=== PATIENT | male | born 2000 | race Caucasian/White ===

== ENCOUNTER 2022-08-14 13:21 | Emergency (ER) | payer OTHER, SELFPAY ==
[2022-08-14 13:33] VITALS: BP 131/72; PULSE 96; RESP 16; TEMP 36.6; O2SAT 98
--- NOTE | 2022-08-14 13:48 | ECG_ITS ---
Measurements Intervals [place] Rate: 66 P: 57 [place]: 147 QRS: 81 QRSD: 110 T: 47 QT: 340 QTc: 357 Interpretive Statements SINUS RHYTHM [place] DEPRESSION IS NOTED IN THE INFERIOR LEADS WHICH CAN BE SEEN WITH PERICARDITIS NO PREVIOUS ECG AVAILABLE FOR COMPARISON Electronically Signed On 08-14-2022 19:56:32 CDT by Trinh Ocampo M.D.
--- NOTE | 2022-08-14 14:00 | ED.URI ---
HPI - URI/Sore Throat General Chief Complaint: Upper Respiratory Infection Stated Complaint: Chest Pain Time Seen by Provider: 08/14/22 13:49 Source: patient and RN notes reviewed Mode of arrival: ambulatory Limitations: no limitations History of Present Illness HPI Narrative: Patient presents today complaining of intermittent sharp left-sided chest pain since 08/23 last night with intermittent shortness of breath. Chest pain worsens when he takes a deep breath, coughs, sneezes, or laughs. Denies any recent illness, but states he does have a chronic cough that has been present for the last 1-2 years. Patient currently rates his pain 03/05 and has tried no ushe-ury-[id number] treatment prior to arrival. Smokes marijuana daily. Smokes 1 pack of cigarettes every 2-3 days. Patient denies any additional symptoms to include fever, dizziness, lightheadedness, numbness or tingling in the extremities, not show vomiting, vision changes, abdominal pain, sweats or chills. Denies any cardiac or pulmonary history. Related Data Allergies Allergy/AdvReac Type Severity Reaction Status Date / Time fentanyl AdvReac Mild Rash Verified 08/14/22 13:26 morphine AdvReac Mild Rash Verified 08/14/22 13:26 Review of Systems Review of Systems: CONSTITUTIONAL: Denies body aches, fever, chills, or sweats. EYES: Denies visual changes, redness, or discharge. ENT: Denies rhinorrhea, congestion, sore throat, or otalgia. CARDIOVASCULAR: Denies palpitations, or edema.+ chest pain RESPIRATORY: + chronic cough, shortness of breath GASTROINTESTINAL: Denies abdominal pain, nausea, vomiting, or diarrhea. GENITOURINARY: Denies dysuria or hematuria. SKIN: Denies rash, itching, or wounds. MUSCULOSKELETAL: Denies back pain, joint pain, or myalgia. NEUROLOGIC: Denies headache, numbness, tingling, or weakness. PSYCH: Denies depression or anxiety. [facility] Social History Social History (Updated 08/14/22 @ 14:13 by Elva Hi, [facility], ) Smoking status: Current every day smoker Tobacco type: cigarettes Substance use: current Substance use type: marijuana Comments At time of signature, I have reviewed and agree with nursing past medical, surgical, social and family history unless otherwise noted. Please see nursing chart for further information. There is no relevant family history pertinent to the presenting complaint Exam Narrative: GENERAL: Well-appearing, well-nourished, and in no acute distress. HEAD: Normocephalic, atraumatic. EYES: EOMI. No redness or drainage. Conjunctivae normal. ENT: Mucous membranes pink and moist. Nares clear. No rhinorrhea. TMs normal bilaterally. Throat normal. Uvula midline. NECK: Normal AROM. Supple. No lymphadenopathy. CHEST: No respiratory distress. Clear to auscultation. Patient is not labored. He is speaking in complete sentences without any difficulty. Patient has significant tenderness of the left chest with palpation, most notably in an area the size of a palm around his nipple. No crepitus, erythema, ecchymosis. Pain in the chest does not increase with movement of the shoulder. HEART: Regular rate and rhythm. No murmur appreciated. Normal peripheral pulses. EXTREMITIES: Normal range of motion. No edema. SKIN: Warm, dry, no rash. Capillary refill normal. Normal skin turgor. NEURO: No focal deficits. Alert and oriented x3. Gait steady. PSYCH: Normal affect. No signs of depression or anxiety. Course Course Level of Care: Express Care Visit Vital Signs Vital signs: Vital Signs Temperature 97.8 F 08/14/22 13:33 Pulse Rate 96 08/14/22 13:33 Respiratory Rate 16 08/14/22 13:33 Blood Pressure 131/72 08/14/22 13:33 Pulse Oximetry 98 08/14/22 13:33 Oxygen Delivery Room Air 08/14/22 13:33 Temperature 97.8 F 08/14/22 13:33 Pulse Rate 96 08/14/22 13:33 Respiratory Rate 16 08/14/22 13:33 Blood Pressure 131/72 08/14/22 13:33 Pulse Oximetry 98 08/14/22 13:33 Oxygen
== END 2022-08-14 14:04 | disposition home or self-care (01) ==
PROVIDERS: Emergency Provider Nurse Practitioner
DX: R07.89 Other chest pain (principal); F17.210 Nicotine dependence, cigarettes, uncomplicated; F12.90 Cannabis use, unspecified, uncomplicated
CPT/HCPCS: 93005; 99213; G0463

== ENCOUNTER 2022-12-26 15:45 | Emergency (ER) | payer OTHER, SELFPAY ==
[2022-12-26 16:08] VITALS: BP 132/74; PULSE 70; RESP 18; TEMP 36.6; O2SAT 100
--- NOTE | 2022-12-26 16:35 | ED.URI ---
HPI - URI/Sore Throat General Chief Complaint: Upper Respiratory Infection Stated Complaint: sob Time Seen by Provider: 12/26/22 16:22 Source: patient, RN notes reviewed and old records reviewed Mode of arrival: ambulatory Limitations: no limitations History of Present Illness HPI Narrative: 22 year old male presents to [facility] care with complaints of cough for 2 years and having some shortness of breath for 2 months,and one week duration of sore throat. Patient reports that he was diagnosed with asthma at age 8, has not seen doctor since age 15. Patient does use tobacco daily. Patient reports headache,body aches, productive cough of greenish phlegm. Patient reports that cough is worse in the morning and if he gets to laughing. Patient is in no acute respiratory difficulty respirations nonlabored, no tachypnea noted SAO2 100% on room air. MD elicited complaint: cough, sore throat and other (SOB) Pertinent past history: asthma Onset (ago): week(s) (1 week sore throat, 2 months shortness of breath, 2 yrs cough) Consistency: constant Pain scale (0-10): 2 Description of mucous: yellow and green Able to tolerate fluids by mouth: Yes Exacerbating factors: exertion Treatments prior to arrival: none Related Data Allergies Allergy/AdvReac Type Severity Reaction Status Date / Time fentanyl AdvReac Mild Rash Verified 12/26/22 16:14 morphine AdvReac Mild Rash Verified 12/26/22 16:14 Review of Systems Review of Systems: CONSTITUTIONAL: Denies malaise, chills, sweats, or fever. EYES: Denies visual changes, redness, or discharge. ENT: Reports rhinorrhea, congestion, no sinus pain,no otalgia and positive for sore throat. CARDIOVASCULAR: Denies chest pain, palpitations, or edema. RESPIRATORY: Reports cough.? Reports some dyspnea. GASTROINTESTINAL: Denies abdominal pain, nausea, vomiting, diarrhea SKIN: Denies rash or itching. MUSCULOSKELETAL: Reports myalgia. NEUROLOGIC: Denies headache. All systems reviewed & are unremarkable except as noted in HPI and below PMFSH Past Medical History Medical History (Updated 12/27/22 @ 11:00 by Isabela Arroyo NP) Asthma Social History Social History (Updated 12/27/22 @ 10:55 by Isabela Arroyo NP) Smoking status: Current every day smoker Tobacco type: cigarettes Substance use: current Substance use type: marijuana Living arrangements: with family Gender identity (if verbalized by the patient): Male Comments At time of signature, agree with nursing past medical, surgical, social and family history. There is no relevant family history pertinent to the presenting complaint Exam Narrative: GENERAL: Well-appearing, well-nourished, and in no acute distress. HEAD: Normocephalic EYES: PERRLA, conjunctivae clear ENT: Nares clear, turbinates edematous and erythematous, clear discharge. Mucous membranes moist. TM pearly rich with dull light reflex bilaterally; no tragal tenderness. Oropharynx erythematous without lesions. Tonsils mildly enlarged and without exudate, no drooling, no hoarseness, no trismus, uvula midline.post nasal drainage NECK: Supple. No lymphadenopathy CHEST: Clear to auscultation, breath sounds equal. No wheezing, rhonchi, rales, or stridor. No respiratory distress, speaks in full sentences.cough productive, SAO2 100% on room air HEART: Regular rate and rhythm. No murmur heard. SKIN: Warm, dry, no rash. NEURO: Alert and oriented x3. PSYCH: Normal mood and affect Course Course Emergency Course: Patient is aware of diagnosis, understands and agrees to treatment plan.? Anticipatory guidance given.? Patient agrees to follow-up as directed and is aware of reasons to seek care at the emergency department. Portions of this record may have been created with voice recognition software Level of Care: Express Care Visit Vital Signs Vital signs: Vital Signs Temperature 36.6 C 12/26/22 16:08 Pulse Rate 70 12/26/22 16:08
== END 2022-12-26 16:55 | disposition home or self-care (01) ==
PROVIDERS: Emergency Provider Registered Nurse
DX: J06.9 Acute upper respiratory infection, unspecified (principal); J45.909 Unspecified asthma, uncomplicated; F17.210 Nicotine dependence, cigarettes, uncomplicated
CPT/HCPCS: 87081; 87880; 99213; G0463

== ENCOUNTER 2023-06-07 11:28 | Emergency (ER) | payer SELFPAY ==
[2023-06-07 11:44] VITALS: BP 136/70; PULSE 93; RESP 18; TEMP 36.8; O2SAT 98
--- NOTE | 2023-06-07 12:12 | ED.URI ---
HPI - URI/Sore Throat General Chief Complaint: Upper Respiratory Infection Stated Complaint: sorethroat Time Seen by Provider: 06/07/23 11:35 Source: patient Mode of arrival: ambulatory Limitations: no limitations History of Present Illness HPI Narrative: 22-year-old male presents to [facility] [place] [facility] with complaints of sore throat, body aches, nausea and vomiting for the past 3 days. Patient reports his daughter recently tested positive for strep throat. Patient has been taking [id number]-[id number] Tylenol and Motrin with minimal relief. Patient denies fever, cough, congestion, runny nose or ear pain. MD elicited complaint: sore throat and other (Nausea, vomiting, body aches) Onset (ago): day(s) (3) Able to tolerate fluids by mouth: Yes Exacerbating factors: swallowing Context: sick contacts Treatments prior to arrival: acetaminophen and ibuprofen Related Data Allergies Allergy/AdvReac Type Severity Reaction Status Date / Time fentanyl Allergy Mild Rash Verified 06/07/23 11:50 morphine Allergy Mild Rash Verified 06/07/23 11:50 Review of Systems Constitutional: Constitutional: Denies chills, Denies fatigue, Denies fever(s) and Denies weakness ENT: Denies vertigo, Denies dizziness, Denies epistaxis, Denies nasal congestion and Reports sore throat Cardiovascular: Cardiovascular: Denies chest pain Respiratory: Respiratory: Denies cough Gastrointestinal: Gastrointestinal: Denies diarrhea, Reports nausea and Reports vomiting Integumentary/Breasts: Skin/Breast: Denies rash Neurologic: Denies dizziness, Denies syncope and Denies headache(s) Allergic/Immunologic: Allergic/Immunologic: Denies throat swelling, Denies tongue swelling and Denies wheezing PMFSH Past Medical History Medical History Asthma Social History Social History Smoking status: Current every day smoker Tobacco type: cigarettes Substance use: current Substance use type: marijuana Living arrangements: with family Gender identity (if verbalized by the patient): Male Comments At time of signature, I agree with nursing past medical, surgical, social and family history. There is no relevant family history pertinent to the presenting complaint. Exam Const: General: healthy appearing and no acute distress Nutritional Appearance: well nourished Orientation/consciousness: patient oriented x3 Limitations: no limitations HENMT: Head: normal to inspection Ears: external ears normal, TM's normal bilaterally and EAC's normal Mouth: Yes Normal oral and palatal mucosa present and Yes moist mucous membranes Teeth and gingiva: dentition normal Throat: uvula midline Other: Mild erythema noted to oropharynx. 1+ swelling with moderate erythema noted to bilateral tonsils. No peritonsillar abscess noted Eyes: Conjunctivae: conjunctivae normal Neck: Neck: normal visual inspection Resp: Effort & Inspection: normal respiratory effort and not labored Auscultation: clear to auscultation bilaterally, no crackles, no rales and no rhonchi Cardio: Rate: regular rate Rhythm: regular rhythm Heart sounds: no murmurs Skin: General skin exam: normal color Rashes: no rashes Neuro: General: patient oriented x3 Speech: normal speech Psych: Affect: normal affect Attitude: cooperative Course Course Level of Care: Express Care Visit Vital Signs Vital signs: Vital Signs Temperature 36.8 C 06/07/23 11:44 Pulse Rate 93 06/07/23 11:44 Respiratory Rate 18 06/07/23 11:44 Blood Pressure 136/70 06/07/23 11:44 Pulse Oximetry 98 06/07/23 11:44 Oxygen Delivery Room Air 06/07/23 11:44 Temperature 36.8 C 06/07/23 11:44 Pulse Rate 93 06/07/23 11:44 Respiratory Rate 18 06/07/23 11:44 Blood Pressure 136/70 06/07/23 11:44 Pulse Oximetry 98 06/07/23 11:44 Oxygen Delivery Room Air 06/07/23 11:44 MDM - URI/Sor
== END 2023-06-07 12:20 | disposition home or self-care (01) ==
PROVIDERS: Emergency Provider Nurse Practitioner Family
DX: J02.0 Streptococcal pharyngitis (principal); F17.210 Nicotine dependence, cigarettes, uncomplicated; F12.90 Cannabis use, unspecified, uncomplicated; J45.909 Unspecified asthma, uncomplicated
CPT/HCPCS: 87880; 99213; G0463

== ENCOUNTER 2024-04-05 10:31 | Emergency (ER) | payer SELFPAY ==
[2024-04-05 10:52] VITALS: BP 124/65; PULSE 72; RESP 18; TEMP 36.3; O2SAT 99
--- OUTSIDE RECORDS SUMMARY | 2024-04-05 11:22 | XMS_ITS | Referral Summary ---
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 Gender Identity Not on file Sexual Orientation Not on file Last Filed Vital Signs Vital Sign Reading Time Taken Comments Blood Pressure 172/100 09/09/2020 1:17 PM CDT Pulse 108 09/09/2020 1:17 PM CDT Temperature 36.8 C (98.3 F) 09/09/2020 1:17 PM CDT Respiratory Rate 18 09/09/2020 1:17 PM CDT Oxygen Saturation 98% 09/09/2020 1:17 PM CDT Inhaled Oxygen Concentration - - Weight 74.6 kg (164 lb 6.4 oz) 09/09/2020 1:17 P M CDT Height 180.3 cm (5' 11 ) 09/09/2020 1:17 PM CDT Body Mass Index 22.93 09/09/2020 1:17 PM CDT Plan of Treatment Not on file Care Teams Packaging Inspector Relationship Specialty Start Date End Date No, Physician PCP - General 09/09/20
--- OUTSIDE RECORDS SUMMARY | 2024-04-05 11:22 | XMS_ITS | Clinical Summary ---
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
--- NOTE | 2024-04-05 11:30 | ED.EAR ---
HPI - Ear Problem General Chief complaint: Ear Stated complaint: ear pain Time Seen by Provider: 04/05/24 11:30 Source: patient Mode of arrival: ambulatory Limitations: no limitations History of Present Illness HPI Narrative: 23-year-old male presents with complaint of left ear pain, nasal congestion for 2-3 days. Afebrile. All systems reviewed and negative except as noted above. Related Data Allergies Allergy/AdvReac Type Severity Reaction Status Date / Time fentanyl Allergy Mild Rash Verified 04/05/24 11:22 morphine Allergy Mild Rash Verified 04/05/24 11:22 Review of Systems Review of Systems: CONSTITUTIONAL: Denies fever, chills, or sweats. reports fatigue. EYES: Denies visual changes, redness, or discharge. ENT: Reports rhinorrhea, congestion. Denies sore throat. Reports left ear pain. CARDIOVASCULAR: Denies chest pain, palpitations, or edema. RESPIRATORY: Denies cough or dyspnea. GASTROINTESTINAL: Denies abdominal pain, nausea, vomiting, or diarrhea. GENITOURINARY: Denies dysuria or hematuria. SKIN: Denies rash or itching. MUSCULOSKELETAL: Denies back pain, joint pain, or myalgia. NEUROLOGIC: Denies headache, numbness, or weakness. PSYCHIATRIC: Denies anxiety or depression. All other systems reviewed are negative, except as documented in HPI. [facility] Past Medical History Medical History Asthma Social History Social History Smoking status: Current every day smoker Tobacco type: cigarettes Substance use: current Substance use type: marijuana Living arrangements: with family Gender identity (if verbalized by the patient): Male Comments At time of signature, agree with nursing past medical, surgical, social and family history. There is no relevant family history pertinent to the presenting complaint. Exam Narrative: GENERAL: This is a well-nourished, well-developed patient, in no apparent distress. HEAD: normocephalic, atraumatic. EYES: PERRL. Sclera clear/white. Vision is grossly intact. EARS: External ears normal, auditory canals clear and without drainage, left TM is erythematous and bulging. Right TM is normal. No perforation bilaterally.. Hearing grossly intact. NOSE: External nose normal with Mild congestion, clear nasal drainage, erythema to bilateral nares THROAT: Mucous membranes moist, erythema postnasal drainage NECK: Neck supple, non-tender without lymphadenopathy, masses or thyromegaly. CARDIOVASCULAR: Regular rate and rhythm without murmurs, gallops, or rubs. RESPIRATORY: Clear to auscultation. Breath sounds equal bilaterally. No wheezes, rales, or rhonchi. SKIN: warm, Dry, intact with no suspicious lesions or rash, good texture and turgor. NEURO: awake, alert, and oriented to person, place and time. There were no obvious focal neurologic abnormalities. EXTREMITIES: No joint tenderness, effusion, or edema noted. Course Course Level of Care: Express Care Visit Vital Signs Vital signs: Vital Signs Temperature 36.3 C L 04/05/24 10:52 Pulse Rate 72 04/05/24 10:52 Respiratory Rate 18 04/05/24 10:52 Blood Pressure 124/65 04/05/24 10:52 Pulse Oximetry 99 04/05/24 10:52 Oxygen Delivery Room Air 04/05/24 10:52 Temperature 36.3 C L 04/05/24 10:52 Pulse Rate 72 04/05/24 10:52 Respiratory Rate 18 04/05/24 10:52 Blood Pressure 124/65 04/05/24 10:52 Pulse Oximetry 99 04/05/24 10:52 Oxygen Delivery Room Air 04/05/24 10:52 reviewed Medical Decision Making MDM Narrative Medical decision making narrative: Please be advised this is a medical document. It is intended for uhyw-ce-ilxk communication. It is written in medical language and may contain unfamiliar abbreviations or verbiage. Medical documents are intended to carry relevant information, facts as evident, and the clinical opinion of the practitioner at the time of the encounter. This report may have been done utilizing a voice recognition system. Attempts have been made to correct errors. However, there may be uncorrected grammatical, spelling, and recognition errors present. The file time of this note does not necessarily represent the time of service. Vital Signs Vital Signs: Vital Signs Temperature 36.3 C L 04/05/24 10:52 Pulse Rate 72 04/05/24 10:52 Respiratory Rate 18 04/05/24 10:52 Blood Pressure 124/65 04/05/24 10:52 Pulse Oximetry 99 04/05/24 10:52 Oxygen Delivery Room Air 04/05/24 10:52 Temperature 36.3 C L 04/05/24 10:52 Pulse Rate 72 04/05/24 10:52 Respiratory Rate 18 04/05/24 10:52 Blood Pressure 124/65 04/05/24 10:52 Pulse Oximetry 99 04/05/24 10:52 Oxygen Delivery Room Air 04/05/24 10:52 Discharge Plan Discharge Clinical Impression: Acute left otitis media Patient Disposition: Home, Self-Care Condition: Stable Instructions: Antibiotic Form, Ear Infection (ED) Additional Instructions: take medications as prescribed. Take ibuprofen or Tylenol every 6-8 hours as needed for pain. Drink at least 64 oz of water a day. Follow-up with your primary care physician if symptoms are not improving. Patient Language: Wolof Prescriptions: New amoxicillin 875 mg tablet 875 mg PO Q12H 10 Days Qty: 20 0RF pseudoephedrine HCl 30 mg tablet 30 mg PO Q4-6H PRN (Reason: nasal congestion) Qty: 20 0RF Rx Instructions: DNExceed 4 doses/24h fluticasone propionate [Flonase Allergy Relief] 50 mcg/actuation spray,suspension 1 spray intranasal BID Qty: 16 0RF Rx Instructions: administer into each nostril No Action amoxicillin 500 mg capsule 500 mg PO Q12H 10 Days Qty: 20 0RF Follow-up/Referrals: PHYSICIAN,SKIN GRADER [Primary Care Provider] - Stand Alone Forms: Work/School Release IP Time of Disposition: 11:38
== END 2024-04-05 11:51 | disposition home or self-care (01) ==
PROVIDERS: Emergency Provider Nurse Practitioner Family; Referring Provider Emergency Medicine
DX: H66.92 Otitis media, unspecified, left ear (principal); J45.909 Unspecified asthma, uncomplicated; F17.210 Nicotine dependence, cigarettes, uncomplicated; F12.90 Cannabis use, unspecified, uncomplicated
CPT/HCPCS: 99213; G0463

== ENCOUNTER 2024-04-13 19:28 | Emergency (ER) | payer SELFPAY ==
--- OUTSIDE RECORDS SUMMARY | 2024-04-13 19:31 | XMS_ITS | Referral Summary ---
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
--- OUTSIDE RECORDS SUMMARY | 2024-04-13 19:31 | XMS_ITS | Clinical Summary ---
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
[2024-04-13 19:42] VITALS: BP 128/75; PULSE 98; RESP 18; TEMP 36.3; O2SAT 93
--- NOTE | 2024-04-13 19:44 | ED_ITS ---
HPI - General Adult General Chief complaint: Upper Respiratory Infection Stated complaint: flu symptoms History of Present Illness HPI narrative: Noah Turner Is a 23-year-old male who presents today with complaints of having fever, body aches, cough, sore throat, runny nose little started yesterday evening. Denies SOB/ chest pain Related Data Allergies Allergy/AdvReac Type Severity Reaction Status Date / Time fentanyl Allergy Mild Rash Verified 04/05/24 11:22 morphine Allergy Mild Rash Verified 04/05/24 11:22 Review of Systems Review of Systems: All systems reviewed & are unremarkable except as noted in HPI and below PMFSH Past Medical History Medical History Asthma Social History Social History Smoking status: Current every day smoker Tobacco type: cigarettes Substance use: current Substance use type: marijuana Living arrangements: with family Gender identity (if verbalized by the patient): Male Exam Narrative: GENERAL: Well-appearing, well-nourished, and in no acute distress. HEAD: Normocephalic, atraumatic. EYES: PERRLA and EOMI. ENT: Nares clear, no rhinorrhea or epistaxis. Mucous membranes moist. Oropharynx with erythema without tonsillar hypertrophy exudate or other lesions. Bilateral TMs pearly rich nonbulging NECK: Supple. No adenopathy or masses. No carotid bruits or JVD CHEST: Clear to auscultation. No respiratory distress. No wheezes rales or rhonchi HEART: Regular rate and rhythm. No murmur heard. Normal peripheral pulses. EXTREMITIES: Normal range of motion. No edema. SKIN: Warm, dry, no rash. NEURO: No focal deficits. Alert and oriented x3. PSYCH: Normal mood and affect. Course Course Level of Care: Express Care Visit Vital Signs Vital signs: Vital Signs Temperature 36.3 C L 04/13/24 19:42 Pulse Rate 98 04/13/24 19:42 Respiratory Rate 18 04/13/24 19:42 Blood Pressure 128/75 04/13/24 19:42 Pulse Oximetry 93 04/13/24 19:42 Oxygen Delivery Room Air 04/13/24 19:42 Temperature 36.3 C L 04/13/24 19:42 Pulse Rate 98 04/13/24 19:42 Respiratory Rate 18 04/13/24 19:42 Blood Pressure 128/75 04/13/24 19:42 Pulse Oximetry 93 04/13/24 19:42 Oxygen Delivery Room Air 04/13/24 19:42 Medical Decision Making MDM Narrative Medical decision making narrative: ED COURSE AND MEDICAL DECISION MAKING: This 23 year old patient presents with symptoms most suggestive of viral upper respiratory tract infection. Lungs are clear bilaterally without any respiratory distress or accessory muscle use. Vital swab: Positive for Influenza A Patient is discharged home in stable condition with expectant management. Return precautions were provided. Procedures: Pulse oximetry interpretation - not hypoxic. Review of medical records. DISPOSITION: Discharged home in stable condition. IMPRESSION: Influenza A Medical Records Medical records reviewed: Yes I reviewed the external patient's medical records. Vital Signs Vital Signs: Vital Signs Temperature 36.3 C L 04/13/24 19:42 Pulse Rate 98 04/13/24 19:42 Respiratory Rate 18 04/13/24 19:42 Blood Pressure 128/75 04/13/24 19:42 Pulse Oximetry 93 04/13/24 19:42 Oxygen Delivery Room Air 04/13/24 19:42 Temperature 36.3 C L 04/13/24 19:42 Pulse Rate 98 04/13/24 19:42 Respiratory Rate 18 04/13/24 19:42 Blood Pressure 128/75 04/13/24 19:42 Pulse Oximetry 93 04/13/24 19:42 Oxygen Delivery Room Air 04/13/24 19:42 Vitals reviewed Lab Data Lab results reviewed: Yes I reviewed the patient's lab results. Labs: Lab Results 04/13/24 Range/Units 19:52 POC Influenza A Ag Positive (Negative) POC Influenza B Ag Negative (Negative) POC SARS CoV-2 Ag Negative (Negative) Discharge Plan Discharge Clinical Impression: Influenza A Patient Disposition: Home, Self-Care Condition: Stable Instructions: Antibiotic Form Additional Instructions: Start the Tamiflu as discussed Continue to take the Tylenol/ MOtrin and over the counter cold medications PUSH hydration/ drinking plenty of fluids Get plenty of rest Follow up with your PCP in 1 week to ensure you are improving If you develop any worsening symptoms or concerns return or go to the ER. Patient Language: French Prescriptions: New oseltamivir [Tamiflu] 75 mg capsule 75 mg PO Q12H 5 Days Qty: 10 0RF No Action amoxicillin 500 mg capsule 500 mg PO Q12H 10 Days Qty: 20 0RF amoxicillin 875 mg tablet 875 mg PO Q12H 10 Days Qty: 20 0RF pseudoephedrine HCl 30 mg tablet 30 mg PO Q4-6H PRN (Reason: nasal congestion) Qty: 20 0RF Rx Instructions: DNExceed 4 doses/24h fluticasone propionate [Flonase Allergy Relief] 50 mcg/actuation spray,suspension 1 spray intranasal BID Qty: 16 0RF Rx Instructions: administer into each nostril Follow-up/Referrals: PHYSICIAN,[employer] [Primary Care Provider] - Stand Alone Forms: Work/School Release IP Time of Disposition: 19:57
[2024-04-13 19:54] LABS: EDCOVIDSCREEN Negative (Negative); EDINFLUASCREEN Positive (Negative); EDINFLUBSCREEN Negative (Negative)
== END 2024-04-13 20:10 | disposition home or self-care (01) ==
PROVIDERS: Emergency Provider Nurse Practitioner Family
DX: J10.1 Influenza due to other identified influenza virus with other respiratory manifestations (principal); Z20.822 Contact with and (suspected) exposure to COVID-19; F17.210 Nicotine dependence, cigarettes, uncomplicated; F12.90 Cannabis use, unspecified, uncomplicated; J45.909 Unspecified asthma, uncomplicated
CPT/HCPCS: 87426; 87804; 99213; G0463